=== PATIENT | female | born 1945 | race Caucasian/White ===

== ENCOUNTER 2017-06-12 08:30 | Inpatient (IN) | payer BC ==
[2017-06-11 11:47] VITALS: BMI 27.4
[2017-06-12 09:17] LABS: #Basophils 0.1 thou/uL (0.0-0.2); #Eosinphils 0.2 thou/uL (0.0-0.7); #Lymphocytes 2.4 thou/uL (1.20-3.40); #Monocytes 0.6 thou/uL (0.11-0.59); #Neutrophils 2.9 thou/uL (1.40-6.50); %Basophils 1.7 % (0.0-1.0); %Eosinophils 2.8 % (0.0-10.0); %Lymphocytes 39.4 % (21.0-51.0); %Monocytes 9.7 % (0.0-10.0); Hematocrit 39.3 % (36.0-47.0); Mean Platelet Volume 8.3 fL (7.4-10.4); Red Blood Cell (RBC) Count 4.21 mill/uL (4.20-5.40); White Blood Cell (WBC) Count 6.1 thou/uL (4.8-10.8)
[2017-06-12] MEDS ORDERED: Ketorolac Tromethamine 30 MG/ML VIAL ONE (09:18)
[2017-06-12 09:39] LABS: Anion Gap 12 mmol/L (10-20); BUN (Urea Nitrogen) 11 mg/dL (9.8-20.1); Calc. Creatinine Clearance 88 mL/min (70-130); Calcium 9.6 mg/dL (7.8-10.44); Carbon Dioxide 24 mmol/L (23-31); Chloride 104 mmol/L (98-107); Estimated GFR-MDRD 81
[2017-06-12] MEDS ORDERED: Bupivacaine HCl 0.5%/Epinephrine 1:200,000/PF 30 ml Vial ONE (10:38)
[2017-06-12] MEDS ORDERED: Fentanyl 100 MCG/2 ML VIAL ONE (10:46)
[2017-06-12] MEDS ORDERED: Midazolam HCl 2 mg/2 ml Vial ONE (10:46)
[2017-06-12] MEDS ORDERED: Promethazine HCl 25 MG/ML VIAL ONE (10:47)
[2017-06-12] MEDS ORDERED: Lidocaine 1% PF 5 ML VIAL ONE (11:02)
[2017-06-12] MEDS ORDERED: Propofol 200 MG/20 ML VIAL ONE (11:02)
[2017-06-12] MEDS ORDERED: PHENYLEPHRINE-NS 100 MCG/ML 10 ML SYRINGE ONE (11:02)
[2017-06-12] MEDS ORDERED: Labetalol HCl 100 MG/20 ML SYR ONE (11:02)
[2017-06-12] MEDS ORDERED: Ondansetron HCl/PF 4 MG/2 ML Vial ONE (11:02)
[2017-06-12] MEDS ORDERED: Glycopyrrolate 0.2 MG/ML 5 ML SYRINGE ONE (11:02)
[2017-06-12] MEDS ORDERED: Dexamethasone 20 MG/5 ML VIAL ONE (11:02)
--- NOTE | 2017-06-12 11:22 | RAD ---
CHEST 2 VIEWS: Date: 06/12/17 HISTORY: Preoperative exam. Hiatal hernia. COMPARISON: None. FINDINGS: Atherosclerosis of aorta. Normal cardiac silhouette. Pulmonary vessels and hilum are normal. Costoph renic angles are clear. No masses or consolidation. No pneumothorax. Bilateral apical pleural thicke carolin is noted. Atherosclerosis of aorta is identified. IMPRESSION: 1. No acute cardiopulmonary process. 2. Atherosclerosis. POS: [facility]
[2017-06-12] MEDS ORDERED: Promethazine HCl 25 MG/ML VIAL SLOW IVP PRN (13:20)
[2017-06-12] MEDS ORDERED: Ondansetron HCl/PF 4 MG/2 ML Vial IVP PRN ×2 (13:20→15:13)
[2017-06-12] MEDS ORDERED: Meperidine HCl/PF 25 MG/ML VIAL SLOW IVP PRN (13:20)
[2017-06-12] MEDS ORDERED: Morphine Sulfate 2 MG/ML SYRINGE SLOW IVP PRN (13:20)
[2017-06-12] MEDS ORDERED: Dextrose 5% in Water 1,000 ML IV PRN (15:13)
[2017-06-12] MEDS ORDERED: Mag-Al 1200 mg/1200 mg/30 ML UDCUP PO PRN (15:13)
[2017-06-12] MEDS ORDERED: Dextrose 50% Abboject 50 ML SYRINGE SLOW IVP PRN (15:13)
[2017-06-12] MEDS ORDERED: Calcium Carbonate 500 MG ChewTAB PO PRN (15:13)
[2017-06-12] MEDS ORDERED: Promethazine HCl 25 MG/ML VIAL IM PRN (15:13)
[2017-06-12] MEDS: D5 1/2 NS w/20 mEq KCL 1,000 ML IV SCH (15:13)
[2017-06-12] MEDS: Ketorolac Tromethamine 30 MG/ML VIAL IVP SCH (16:30)
[2017-06-12] MEDS: Famotidine/PF 20 mg/2ml Vial SLOW IVP SCH (22:35)
[2017-06-12] MEDS: Famotidine 20 MG TAB PO SCH (22:36)
[2017-06-13] MEDS: Ketorolac Tromethamine 30 MG/ML VIAL IVP SCH ×2 (02:18→07:02)
[2017-06-13] MEDS: D5 1/2 NS w/20 mEq KCL 1,000 ML IV SCH ×2 (02:20→10:50)
[2017-06-13 05:54] LABS: #Lymphocytes 1.9 thou/uL (1.20-3.40); #Neutrophils 6.7 thou/uL (1.40-6.50); %Basophils 0.4 % (0.0-1.0); %Eosinophils 0.1 % (0.0-10.0); %Lymphocytes 19.5 % (21.0-51.0); %Monocytes 10.3 % (0.0-10.0); Hematocrit 32.7 % (36.0-47.0); Mean Platelet Volume 8.8 fL (7.4-10.4); Red Blood Cell (RBC) Count 3.48 mill/uL (4.20-5.40); White Blood Cell (WBC) Count 9.7 thou/uL (4.8-10.8)
[2017-06-13 06:20] LABS: ALT (SGPT) 15 U/L (8-55); AST (SGOT) 18 U/L (5-34); Alkaline Phosphatase 62 U/L (40-150); Anion Gap 9 mmol/L (10-20); BUN (Urea Nitrogen) 10 mg/dL (9.8-20.1); Bilirubin, Total 0.6 mg/dL (0.2-1.2); Calc. Creatinine Clearance 83 mL/min (70-130); Calcium 8.7 mg/dL (7.8-10.44); Carbon Dioxide 25 mmol/L (23-31); Chloride 101 mmol/L (98-107); Estimated GFR-MDRD 75; Globulin 2.2 g/dL (2.4-3.5); Protein, Total 5.7 g/dL (6.0-8.3)
[2017-06-13 08:21] VITALS: BP 130/82; TEMP 98
[2017-06-13] MEDS: Famotidine 20 MG TAB PO SCH (08:30)
[2017-06-13] MEDS: Famotidine/PF 20 mg/2ml Vial SLOW IVP SCH (08:30)
--- NOTE | 2017-06-14 14:11 | OP ---
DATE OF PROCEDURE: 06/12/2017 PREOPERATIVE DIAGNOSIS: Hiatal hernia with gastroesophageal reflux. POSTOPERATIVE DIAGNOSIS: Hiatal hernia with gastroesophageal reflux. OPERATION PERFORMED: Laparoscopic Tammy fundoplication. SURGEON: Jonathon Gibson M.D. QUANTITATIVE CONSULTANT: KO Gil INDICATIONS: The patient is a 72-year-old white female. She presents with a large hiatal hernia vi sualized endoscopically and on upper GI. She has substantial gastroesophageal reflux disease. She is taken to the operating room at this time for a Tammy fundoplication. OPERATIVE PROCEDURE IN DETAIL: Informed consent was obtained, the patient was taken to the operatin g room where general endotracheal anesthesia was obtained with the patient in supine position. Abdo men was prepped with ChloraPrep and draped in sterile fashion. Local anesthetic was infiltrated and a 5 mm supraumbilical incision was created through which a Veress needle was passed into the perito ivanna cavity and pneumoperitoneum established using carbon dioxide up to a pressure of 15 mmHg. A 5 mm trocar port was passed through this same incision. Laparoscopic camera was passed through this p ort. Under direct vision, 4 additional ports were placed, including bilateral subcostal 5 mm ports, an 11 mm left epigastric port, and a 5 mm right epigastric port. The patient was placed into a fairly steep reverse Trendelenburg position. The triangle retractor w as passed in through the lateral right port and used to elevate the left lobe of the liver giving ex cellent visualization. It was fixed with the Hernan's arm. Initial visualization revealed a fairly large hiatal hernia with at least one-third of the stomach p resent up within the chest. Dissection was begun on the right side. The pars flaccida was incised and the lesser omentum was dissected down to the right crow. The peritoneal lining of the gastroeso phageal junction was dissected extended around the anterior aspect. Attention was then turned to th e left side. With the use stomach fully retracted out of the mediastinum, the peritoneum was incise d overlying the left crow and the hernia sac was fully dissected out of the mediastinum and reduced into the abdominal cavity. Most of the hernia sac was resected using the LigaSure device. Hemostas is was meticulously maintained. Additional dissection was then carried up into the mediastinum to a ppropriately mobilize the distal esophagus. A retroesophageal window was then dissected and Ida drain was placed around the distal esophagus. This allowed easy retraction into the abdominal cavi ty. A 50-Lao bougie was then passed into the stomach. Using this as a guide, the diaphragm was approximated posteriorly which 3 interrupted sutures of 0 Bralon using the EndoStitch device. This allowed excellent approximation with appropriate laxity around the esophagus. The greater curve of the stomach was then mobilized along the upper 1/3 using the LigaSure device. A portion of the fundus was then grasped and pulled back behind the esophagus to the patient's righ t side. A wrap was then constructed using a fundus attachment to another portion of the anterior ga stric body. The wrap was constructed and this around the distal esophagus. The wrap was cons tructed using 3 interrupted sutures of 0 Bralon, the upper and lower of which were affixed to the un derlying esophagus as well. The wrap was then fixed down into the abdomen using 2 collar sutures of 0 Bralon between the wrap and the hiatus. These were placed at the 10:30 and 1:30 radians. Finall y, a posterior gastropexy suture was placed between the wrap and the crural closure posteriorly. There were no complications during the operation. There was never any substantial bleeding nor any injury to unintended structures. At one point during the operation the bougie could not be passed t hrough the esophagus down into the abdomen after the diaphragm had been closed and I did have to re move a couple of sutures to allow the bougie to be replaced into the stomach and those sutures were then replaced uneventfully. There was no evidence of esophageal injury in doing this. There were no complications. The triangle retractor was removed. The port site at the 11 mm port w as closed with 0 Vicryl suture using a GraNee needle. All ports and instruments were removed under direct vision. Pneumoperitoneum was carefully evacuated. 0.25% Marcaine with epinephrine was infilt rated into each port site. was approximated with 4-0 Monocryl subcuticular suture and Dermabo nd . There were no complications. The patient tolerated the procedure well and was taken to re covery room in stable condition.
== END 2017-06-13 10:50 | disposition home or self-care (01) | DRG 328 ==
LOC: SURG A 08:30 → SURG B 13:52
PROVIDERS: ADMIT Specialist; ATTEND Specialist
PROC: 0DV44ZZ Restriction of Esophagogastric Junction, Percutaneous Endoscopic Approach (ICD-10-PCS; principal; 2017-06-12)
PROC: 0BQS4ZZ (ICD-10-PCS; 2017-06-12)
DX: K44.9 Diaphragmatic hernia without obstruction or gangrene (principal); I10 Essential (primary) hypertension; K21.9 Gastro-esophageal reflux disease without esophagitis; Z88.0 Allergy status to penicillin; Z90.710 Acquired absence of both cervix and uterus; G89.29 Other chronic pain; M79.606 Pain in leg, unspecified; M54.9 Dorsalgia, unspecified
CPT/HCPCS: 36415; 71020; 80048; 80053; 85025; 93005; 93010; J0131; J0360; J0670; J1100; J1170; J1885; J2001; J2250; J2270; J2405; J2550; J2704; J3010; S0028

== ENCOUNTER 2017-09-21 12:46 | Outpatient (CLI) | payer BC ==
--- NOTE | 2017-09-21 14:14 | MMO ---
TWO VIEW DIAGNOSTIC RIGHT MAMMOGRAM: CLINICAL HISTORY: Status post biopsy plus clip placement evaluation. FINDINGS: Examination performed post biopsy. There are no prior imaging comparisons. The patient is transferred from surgery clinical status post right breast biopsy. FINDINGS: There is distortion and density of the upper outer right breast with an indwelling clip. Evaluation is limited due to recent procedural state and the absence of prior comparison imaging. IMPRESSION: Clip within upper outer right breast at site of presumed postprocedural distortion. Correlation with pathology results as necessary as well as imaging followup. POS: [facility]
== END 2017-09-21 12:47 | disposition home or self-care (01) ==
LOC: MAMMO 12:46
PROVIDERS: ATTEND Specialist
DX: N63.10 Unspecified lump in the right breast, unspecified quadrant (principal)

== ENCOUNTER 2017-10-05 12:02 | Outpatient (CLI) | payer BC ==
[2017-10-05 13:26] LABS: #Basophils 0.1 thou/uL (0.0-0.2); #Eosinphils 0.2 thou/uL (0.0-0.7); #Lymphocytes 2.8 thou/uL (1.20-3.40); #Monocytes 0.7 thou/uL (0.11-0.59); #Neutrophils 3.7 thou/uL (1.40-6.50); %Basophils 1.2 % (0.0-1.0); %Eosinophils 2.3 % (0.0-10.0); %Monocytes 9.4 % (0.0-10.0); %Neutrophils 49.1 % (42.0-75.0); Hemoglobin 12.1 g/dL (12.0-16.0); Mean Corpuscular HGB CONC 32.8 g/dL (32.0-36.0); Mean Corpuscular Hemoglobin 31.2 pg (27.0-31.0); Mean Platelet Volume 8.6 fL (7.4-10.4); Platelet Count 282 thou/uL (130-400); Red Blood Cell (RBC) Count 3.88 mill/uL (4.20-5.40); White Blood Cell (WBC) Count 7.5 thou/uL (4.8-10.8)
[2017-10-05 13:54] LABS: Anion Gap 14 mmol/L (10-20); BUN (Urea Nitrogen) 13 mg/dL (9.8-20.1); Calc. Creatinine Clearance 0 mL/min (70-130); Calcium 9.8 mg/dL (7.8-10.44); Carbon Dioxide 24 mmol/L (23-31); Chloride 100 mmol/L (98-107); Estimated GFR-MDRD 76; Glucose 94 mg/dL (83-110); Potassium 4.1 mmol/L (3.5-5.1); Sodium 134 mmol/L (136-145)
--- NOTE | 2017-10-06 07:19 | EKG ---
Test Reason : Blood Pressure : / mmHG Vent. Rate : 065 BPM Atrial Rate : 065 BPM P-R Int : 140 ms QRS Dur : 078 ms QT Int : 432 ms P-R-T Axes : 043 076 057 degrees QTc Int : 449 ms Normal sinus rhythm Normal ECG When compared with ECG of 12-JUN-2017 09:34, No significant change was found Confirmed by VICKI BENITEZ, SCuca ([id number]) on 10/06/2017 7:19:09 AM Referred By: PEARL Confirmed By:DR. Taylor COHEN MD
== END 2017-10-05 12:03 | disposition home or self-care (01) ==
LOC: LABBT 12:02
PROVIDERS: ATTEND Specialist
DX: Z01.818 Encounter for other preprocedural examination (principal); C50.911 Malignant neoplasm of unspecified site of right female breast
CPT/HCPCS: 80048; 85025; 93005; 93010

== ENCOUNTER 2017-10-09 08:05 | Day surgery (SDC) | payer BC ==
[2017-10-05 12:17] VITALS: BMI 24.7
[2017-10-09] MEDS ORDERED: Ketorolac Tromethamine 30 MG/ML VIAL ONE (09:49)
[2017-10-09] MEDS ORDERED: CEFAZOLIN/Water 2 GM/20 ML SYRINGE ONE (09:50)
--- NOTE | 2017-10-09 11:11 | NM ---
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 TECHNIQUE: 0.40 mCi technetium-99m filtered sulfur colloid divided into four tuberculin syringes. Alcohol swab o f four quadrants of the right periareolar region. 30 gauge needle used to inject with the tuberculin syringe contents in each of the quadrants. FINDINGS: Immediate anterior and lateral scintigraphic images of the upper chest, head and neck demonstrate thr ee right axillary lymph nodes. One of these lymph nodes may actually be an internal mammary lymph nod e. IMPRESSION: Successful lymphoscintigraphy of the right breast, with demonstration of sentinel right axillary lymp h nodes. POS: [facility]
[2017-10-09] MEDS ORDERED: Fentanyl 100 MCG/2 ML VIAL ONE (12:18)
[2017-10-09] MEDS ORDERED: Lidocaine 2% w/Epinephrine 1:200K 20 ML VIAL ONE (12:24)
[2017-10-09] MEDS ORDERED: Bupivacaine 0.25% HCL 30 ML VIAL ONE (12:24)
[2017-10-09] MEDS ORDERED: Isosulfan Blue 50 MG/5 ML VIAL ONE (12:24)
[2017-10-09] MEDS ORDERED: Lidocaine 1% PF 5 ML VIAL ONE (12:30)
[2017-10-09] MEDS ORDERED: diphenhydrAMINE 50 MG/ML VIAL ONE (12:30)
[2017-10-09] MEDS ORDERED: ePHEDrine/0.9% NaCl/PF SYRINGE 50 mg/10 ml ONE (12:30)
[2017-10-09] MEDS ORDERED: Propofol 200 MG/20 ML VIAL ONE (12:30)
[2017-10-09] MEDS ORDERED: Metoclopramide HCl 10 MG/2 ML VIAL ONE (12:30)
[2017-10-09] MEDS ORDERED: Dexamethasone 20 MG/5 ML VIAL ONE (12:30)
[2017-10-09] MEDS ORDERED: Ondansetron HCl/PF 4 MG/2 ML Vial ONE (12:30)
[2017-10-09] MEDS ORDERED: Levofloxacin 500 mg/D5W 100 ml Premix Bag ONE (12:51)
--- NOTE | 2017-10-09 14:33 | MMO ---
RADIOGRAPH SURGICAL SPECIMEN: Date: 10/09/17 HISTORY: Status post sonographically guided needle localization by surgeon, and excisional breast biopsy by wilian stewart, of 72-year-old female with malignant neoplasm of upper outer quadrant of right breast. FINDINGS: The surgical specimen contains the localization wire, a mass-like soft tissue density, and a surgical clip at the periphery of this mass-like density. IMPRESSION: Successful surgical excisional biopsy of right upper outer quadrant breast cancer. POS: [facility]
--- NOTE | 2017-10-10 15:30 | OP ---
DATE OF PROCEDURE: 10/09/2017 PREOPERATIVE DIAGNOSIS: Right breast cancer. POSTOPERATIVE DIAGNOSIS: Right breast cancer. OPERATIONS PERFORMED: Ultrasound-guided needle localization of right breast cancer, needle localized right breast lumpectomy and right axillary sentinel lymph node biopsy. SURGEON: Jonathon Gibson M.D. ANESTHESIA: General endotracheal. INDICATIONS: The patient is a 72-year-old white female. She had presented with a right breast mass that was biopsied and found to be an area of invasive ductal carcinoma. This was less than 2 cm in s ize. It is a hormone receptor positive and HER-2 negative. I discussed all possible options with he r and she has elected to proceed with breast conserving surgery, with which I agreed. DESCRIPTION OF OPERATION: Informed consent was obtained. The patient was taken to the operating russ m where general endotracheal anesthesia was obtained with the patient in the supine position. Prior to being taken to the operating room, lymphoscintigraphy was performed revealing at least 2 obvious s entinel lymph nodes within the right axilla. A 2.5 mL of Lymphazurin was infiltrated into the subder mal tissue around the right areolar edge and the area was massaged for 5 minutes. Attention was turned to the axilla. Local anesthetic was infiltrated using 0.25% Marcaine with epine phrine and a transverse incision was created in the inferior axilla. Dissection was carried through skin and subcutaneous tissue as well as the superficial axillary fascia. Neoprobe was utilized to id entify areas of maximum radio intensity. I was able to dissect 3 separate lymph nodes, each of which had substantial radioactivity and 2 of which had blue dye within them as well. Each lymph node was dissected circumferentially and all investing tissue was divided between clamps and 3-0 silk ties. A t the completion of removal of these 3 sites, there was no substantial residual radioactivity. Metic ulous hemostasis was obtained and the wound was closed in layers with 3-0 and 4-0 Monocryl. Addition al local anesthetic was infiltrated during closure. Attention was turned to the breast. Ultrasound was utilized to identify the area of the malignancy w ithin the upper outer right breast. This was unfortunately challenging as there was substantial makayla tennille and reaction around the prior biopsy site. I was, however, able to identify this and marked the area of the malignancy on the overlying skin. I then utilized the ultrasound to pass a localizing w marques down through the skin and the malignancy. The wire was placed in a medial to lateral fashion. Additional local anesthetic was infiltrated. Transverse incision was created directly over the right breast cancer. Dissection was carried through skin and subcutaneous tissue. Flaps were raised in a ll directions and the tissue into which the wire entered was grasped with 2 Allis clamps. I dissecte d a wide lump of tissue around the investing needle. The specimen was removed intact and tagged for orientation with multiple sutures. The specimen was passed off to Radiology who confirmed that the p rior biopsy clip was within the specimen and there appeared to be a density consistent with a cancer within the specimen as well as it appeared that the margins were adequate based on this. Examination within the wound was carried out. There was no further visible or palpable evidence of disease. Me ticulous hemostasis was obtained with electrocautery. The wound was closed in layers with 3-0 and 4- 0 Monocryl and additional local anesthetic was infiltrated during closure. Dermabond was placed exte rnally over both incisions. There were no complications. The patient tolerated the procedure well a nd was taken to recovery room in stable condition.
== END 2017-10-09 16:35 | disposition home or self-care (01) ==
LOC: SDC 08:05
PROVIDERS: ATTEND Specialist
PROC: 07B50ZX Excision of Right Axillary Lymphatic, Open Approach, Diagnostic (ICD-10-PCS; principal; 2017-10-09)
PROC: 0HBT0ZZ Excision of Right Breast, Open Approach (ICD-10-PCS; principal; 2017-10-09)
DX: C50.411 Malignant neoplasm of upper-outer quadrant of right female breast (principal); M54.9 Dorsalgia, unspecified; M79.606 Pain in leg, unspecified; G89.29 Other chronic pain; I42.9 Cardiomyopathy, unspecified; I10 Essential (primary) hypertension; Z17.0 Estrogen receptor positive status [ER+]; Z79.82 Long term (current) use of aspirin; Z79.899 Other long term (current) drug therapy; Z88.0 Allergy status to penicillin; Z96.1 Presence of intraocular lens; Z98.41 Cataract extraction status, right eye; Z98.42 Cataract extraction status, left eye; Z90.710 Acquired absence of both cervix and uterus; Z98.890 Other specified postprocedural states; Z86.73 Personal history of transient ischemic attack (TIA), and cerebral infarction without residual deficits
CPT/HCPCS: 76098; 78195; 88307; 88333; 88334; 88342; A9541; J0131; J1100; J1200; J1885; J1956; J2001; J2405; J2704; J2765; J3010; Q9968; S0020

== ENCOUNTER 2018-10-02 08:16 | Outpatient (CLI) | payer BC | END 2018-10-02 08:17 | disposition home or self-care (01) | LOC: BICMAMMO 08:16 | PROVIDERS: ATTEND Specialist | DX: C50.911 Malignant neoplasm of unspecified site of right female breast (principal); Z85.3 Personal history of malignant neoplasm of breast | CPT/HCPCS: 77066; G0279 ==

== ENCOUNTER 2018-11-05 09:07 | Outpatient (CLI) | payer BC ==
--- NOTE | 2018-11-05 10:39 | BD ---
DEXA BONE DENSITY EXAM: HISTORY: A 73-year-old postmenopausal female for screening. FINDINGS: LUMBAR SPINE BMD (g/cm2) T-SCORE L1 0.871 -1.1 L2 0.943 -0.8 L3 1.034 -0.5 L4 1.100 0.5 TOTAL L1-L4 0.993 -0.5 LEFT FEMORAL NECK 0.896 0.4 TOTAL PROXIMAL LEFT FEMUR 1.032 0.7 IMPRESSION: Normal bone mineral density. POS: [facility]
== END 2018-11-05 09:08 | disposition home or self-care (01) ==
LOC: BICMAMMO 09:07
PROVIDERS: ATTEND Internal Medicine Hematology & Oncology
DX: Z78.0 Asymptomatic menopausal state (principal); C50.411 Malignant neoplasm of upper-outer quadrant of right female breast; M85.88 Other specified disorders of bone density and structure, other site
CPT/HCPCS: 77080

== ENCOUNTER 2019-10-09 09:07 | Outpatient (CLI) | payer BC ==
--- NOTE | 2019-10-09 10:03 | MMO ---
Bilateral MAMMO Bilat Diag DDI+OSCAR. CLINICAL HISTORY: Patient is 74 years old and is seen for diagnostic exam. The patient has no family history of breast cancer. The patient has a history of malignant (generic) in the right breast at age 72. The patient has a history of right Lumpectomy in September, - malignant. VIEWS: The views performed were: bilateral craniocaudal with tomosynthesis; bilateral mediolateral oblique with tomosynthesis; and bilateral mediolateral with tomosynthesis. FILMS COMPARED: The present examination has been compared to prior imaging studies performed at [facility] on 09/12/2017, at [facility] on 10/02/2018, and at [facility] on 09/21/2017 and 10/09/2017. This study has been interpreted with the assistance of computer-aided detection. MAMMOGRAM FINDINGS: The breasts are heterogeneously dense, which could obscure a lesion on mammography. Finding 1: There are stable benign appearing calcifications seen in both breasts. Finding 2: There is a stable post-surgical scar seen in the upper-outer region of the right breast. There are no suspicious masses, suspicious calcifications, or new areas of architectural distortion. IMPRESSION: THERE IS NO MAMMOGRAPHIC EVIDENCE OF MALIGNANCY. A ROUTINE FOLLOW-UP MAMMOGRAM IN 1 YEAR IS RECOMMENDED. THE RESULTS OF THIS EXAM WERE SENT TO THE PATIENT. ACR BI-RADS Category 2 - Benign finding MAMMOGRAPHY NOTE: 1. A negative mammogram report should not delay a biopsy if a dominant of clinically suspicious mass is present. 2. Approximately 10% to 15% of breast cancers are not detected by mammography. 3. Adenosis and dense breasts may obscure an underlying neoplasm. Reported by: KELSY THOMPSON MD Electonically Signed: [id number]
== END 2019-10-09 09:08 | disposition home or self-care (01) ==
LOC: BICMAMMO 09:07
PROVIDERS: ATTEND Specialist
DX: Z08 Encounter for follow-up examination after completed treatment for malignant neoplasm (principal); Z85.3 Personal history of malignant neoplasm of breast
CPT/HCPCS: 77066; G0279

== ENCOUNTER 2020-02-10 11:02 | Outpatient (CLI) | payer BC ==
--- NOTE | 2020-02-10 13:51 | BD ---
Exam: DEXA Bone Density 02/10/20 HISTORY: Osteoporosis screening. COMPARISON: DEXA exam from 2019. FINDINGS: Lumbar Spine: BMD (g/cm2) T-SCORE Z-SCORE L1 0.888 -0.9 1.2 L2 0.904 -1.1 1.2 L3 1.095 0.1 2.5 L4 1.081 0.2 2.7 L1-L4 0.996 -0.5 1.9 The change from the comparison examination is +0.3%, not statistically significant. Left Femoral Neck: 0.842 -0.1 2.0 Total Femur: 1.091 1.2 2.9 The change from the comparison examination is +5.7%, statistically significant. WHO classification: Normal. Impression: Normal bone mineral density with statistically significant increased bone mineral density at the left femoral neck from comparison exam. POS: [facility]
== END 2020-02-10 11:03 | disposition home or self-care (01) ==
LOC: BICMAMMO 11:02
PROVIDERS: ATTEND Internal Medicine Hematology & Oncology
DX: Z13.820 Encounter for screening for osteoporosis (principal); C50.411 Malignant neoplasm of upper-outer quadrant of right female breast; T38.6X5A Adverse effect of antigonadotrophins, antiestrogens, antiandrogens, not elsewhere classified, initial encounter; Z78.0 Asymptomatic menopausal state
CPT/HCPCS: 77080

== ENCOUNTER 2020-12-29 09:01 | Outpatient (CLI) | payer MEDICARE, OTHER | END 2020-12-29 09:02 | disposition home or self-care (01) | LOC: BICMAMMO 09:01 | PROVIDERS: ATTEND Specialist | DX: Z08 Encounter for follow-up examination after completed treatment for malignant neoplasm (principal); Z85.3 Personal history of malignant neoplasm of breast | CPT/HCPCS: 77066; G0279 ==

== ENCOUNTER 2021-01-11 14:07 | Outpatient (CLI) | payer MEDICARE, OTHER ==
[2021-01-11 15:49] LABS: Bilirubin Neg (Negative); Blood, Urine Negative (Negative); Clarity Clear (Clear); Glucose, Urine (Dipstick) Normal (Negative); Ketone, Urine Negative (Negative); Leukocyte 100 (Negative); Nitrite Negative (Negative); Protein, Urine (Dipstick) Negative (Neg-Trace); Urobilinogen Normal mg/dL (Less than 2)
[2021-01-11 16:01] LABS: Bacteria/HPF Rare-Few HPF (None Seen); RBC/HPF 0-3 HPF (0-3); Squamous Epithelial 0-3 HPF (0-3)
[2021-01-11 16:03] LABS: Anion Gap 15 mmol/L (10-20); BUN (Urea Nitrogen) 18 mg/dL (9.8-20.1); Calc. Creatinine Clearance 0 mL/min (70-130); Carbon Dioxide 24 mmol/L (23-31); Chloride 99 mmol/L (98-107); Glucose 101 mg/dL (83-110); Potassium 4.3 mmol/L (3.5-5.1); Sodium 134 mmol/L (136-145)
[2021-01-11 16:05] LABS: #Basophils 0.1 10x3/uL (0.0-0.2); #Eosinphils 0.3 10x3/uL (0.0-0.5); #Monocytes 0.7 10x3/uL (0.0-1.1); #Neutrophils 3.7 10x3/uL (1.5-8.4); %Basophils 0.9 % (0.0-2.0); %Eosinophils 4.9 % (0.0-6.0); %Lymphocytes 29.6 % (18.0-47.0); %Monocytes 9.8 % (0.0-10.0); %Neutrophils 54.7 % (40.0-75.0); Hemoglobin 11.7 g/dL (12.0-15.5); Mean Corpuscular Hemoglobin 30.9 pg (27.0-33.0); Mean Corpuscular Volume 93.7 fl (81.6-98.3); Mean Platelet Volume 12.5 fl (7.4-10.4); Platelet Count 258 10x3/uL (150-450); RBC Distribution Width 13.5 % (11.5-14.5); Red Blood Cell (RBC) Count 3.79 10x6/uL (3.90-5.03); White Blood Cell (WBC) Count 6.7 10x3/uL (3.5-10.5)
[2021-01-12 04:50] LABS: SARS-CoV-2 PCR by NAA Not Detected (NotDetected)
== END 2021-01-11 14:08 | disposition home or self-care (01) ==
LOC: LABBT 14:07
PROVIDERS: ATTEND Orthopaedic Surgery Hand Surgery
DX: Z01.818 Encounter for other preprocedural examination (principal); M19.042 Primary osteoarthritis, left hand; Z20.822 Contact with and (suspected) exposure to COVID-19
CPT/HCPCS: 80048; 81001; 85025; 93005; U0003; U0005; 87635; 93010

== ENCOUNTER 2021-01-14 08:02 | Day surgery (SDC) | payer MEDICARE, OTHER ==
[2021-01-13 11:36] VITALS: BMI 26.9
[2021-01-14] MEDS ORDERED: Midazolam HCl 2 mg/2 ml Vial ONE (09:50)
[2021-01-14] MEDS ORDERED: Fentanyl 100 MCG/2 ML VIAL ONE ×2 (09:50→11:12)
[2021-01-14] MEDS ORDERED: Bupivacaine PF 0.5% 30 ML VIAL ONE (10:54)
[2021-01-14] MEDS ORDERED: Bacitracin Zinc Ointment 30 gm TUBE ONE (10:54)
[2021-01-14] MEDS ORDERED: Betamet Acet/Betamet Na Ph 30 MG/5 ML VIAL ONE (10:54)
[2021-01-14] MEDS ORDERED: Clindamycin/D5W 600 mg/50 ml Premix Bag ONE (10:57)
[2021-01-14] MEDS ORDERED: Lidocaine 1% PF 5 ML VIAL ONE (11:16)
[2021-01-14] MEDS ORDERED: PHENYLEPHRINE-NS 100 MCG/ML 10 ML SYRINGE ONE (11:16)
[2021-01-14] MEDS ORDERED: Ondansetron PF 4 MG/2 ML Vial ONE (11:16)
[2021-01-14] MEDS ORDERED: ePHEDrine Sulfate 50 MG/10 ML VIAL ONE (11:16)
[2021-01-14] MEDS ORDERED: PROPOFOL 200 MG/20 ML VIAL ONE (11:16)
[2021-01-14] MEDS ORDERED: Rocuronium Bromide 10 MG/ML (10ML VIAL) ONE (11:16)
[2021-01-14] MEDS ORDERED: Glycopyrrolate 0.2 MG/ML 5 ML SYRINGE ONE (11:16)
[2021-01-14] MEDS ORDERED: Ketorolac Tromethamine 30 MG/ML VIAL ONE (13:54)
== END 2021-01-14 14:56 | disposition home or self-care (01) ==
LOC: SDC 08:02
PROVIDERS: ATTEND Orthopaedic Surgery Hand Surgery
PROC: 0RRX0JZ Replacement of Left Finger Phalangeal Joint with Synthetic Substitute, Open Approach (ICD-10-PCS; principal; 2021-01-14)
DX: M19.042 Primary osteoarthritis, left hand (principal); I10 Essential (primary) hypertension; G89.29 Other chronic pain; M54.9 Dorsalgia, unspecified; M79.606 Pain in leg, unspecified; I42.9 Cardiomyopathy, unspecified; E78.5 Hyperlipidemia, unspecified; I25.2 Old myocardial infarction; Z85.3 Personal history of malignant neoplasm of breast; Z86.73 Personal history of transient ischemic attack (TIA), and cerebral infarction without residual deficits; Z79.811 Long term (current) use of aromatase inhibitors; Z79.899 Other long term (current) drug therapy; Z88.0 Allergy status to penicillin
CPT/HCPCS: 76000; C1776; J0702; J1885; J2250; J2405; J2704; J3010; J3490; S0020

== ENCOUNTER 2021-02-10 08:37 | Outpatient (CLI) | payer MEDICARE, OTHER | END 2021-02-10 08:38 | disposition home or self-care (01) | LOC: BICMAMMO 08:37 | PROVIDERS: ATTEND Internal Medicine Hematology & Oncology | DX: Z13.820 Encounter for screening for osteoporosis (principal); Z78.0 Asymptomatic menopausal state | CPT/HCPCS: 77080 ==

== ENCOUNTER 2022-01-09 09:31 | Outpatient (CLI) | payer MEDICARE, OTHER | END 2022-01-09 09:32 | disposition home or self-care (01) | LOC: BICMAMMO 09:31 | PROVIDERS: ATTEND Specialist | DX: Z12.31 Encounter for screening mammogram for malignant neoplasm of breast (principal); Z98.890 Other specified postprocedural states; Z85.3 Personal history of malignant neoplasm of breast | CPT/HCPCS: 77063; 77067 ==

== ENCOUNTER 2022-02-01 08:01 | Outpatient (CLI) | payer MEDICARE, OTHER | END 2022-02-01 08:02 | disposition home or self-care (01) | LOC: BICCT 08:01 | PROVIDERS: ATTEND Family Medicine | DX: R06.02 Shortness of breath (principal) | CPT/HCPCS: 71260; 82565 ==

== ENCOUNTER 2023-08-21 09:06 | Outpatient (CLI) | payer MEDICARE | END 2023-08-21 09:07 | disposition home or self-care (01) | LOC: BICMAMMO 09:06 | PROVIDERS: ATTEND Specialist | DX: N63.10 Unspecified lump in the right breast, unspecified quadrant (principal); N64.89 Other specified disorders of breast; Z85.3 Personal history of malignant neoplasm of breast | CPT/HCPCS: 77065; G0279 ==

== ENCOUNTER 2024-01-22 07:33 | Outpatient (CLI) | payer MEDICARE, OTHER | END 2024-01-22 07:34 | disposition home or self-care (01) | LOC: BICCT 07:33 | PROVIDERS: ATTEND Internal Medicine | DX: J45.20 Mild intermittent asthma, uncomplicated (principal); R91.8 Other nonspecific abnormal finding of lung field; K44.9 Diaphragmatic hernia without obstruction or gangrene; M85.9 Disorder of bone density and structure, unspecified; Z98.890 Other specified postprocedural states | CPT/HCPCS: 71250 ==

== ENCOUNTER 2024-02-21 09:36 | Outpatient (CLI) | payer MEDICARE, OTHER | END 2024-02-21 09:37 | disposition home or self-care (01) | LOC: BICMAMMO 09:36 | PROVIDERS: ATTEND Specialist | DX: N64.89 Other specified disorders of breast (principal); Z85.3 Personal history of malignant neoplasm of breast | CPT/HCPCS: 77066; G0279 ==

== ENCOUNTER 2024-09-04 07:02 | Outpatient (CLI) | payer MEDICARE, OTHER ==
[2024-09-04] MEDS ORDERED: Barium Sulfate 96% 176 GM BOT (xray ONLY) ONE (07:24)
[2024-09-04] MEDS ORDERED: E-Z-HD 98% W/W 340GM BOT (x-ray ONLY) ONE (07:24)
== END 2024-09-04 07:03 | disposition home or self-care (01) ==
LOC: RAD 07:02
PROVIDERS: ATTEND Surgery
DX: K44.9 Diaphragmatic hernia without obstruction or gangrene (principal); K21.9 Gastro-esophageal reflux disease without esophagitis
CPT/HCPCS: 74220

== ENCOUNTER 2024-09-23 08:33 | Outpatient (CLI) | payer MEDICARE, OTHER ==
[2024-09-23 10:21] LABS: #Basophils 0.08 10x3/uL (0.0-0.2); %Basophils 0.9 % (0.0-1.0); %Eosinophils 3.1 % (0.0-10.0); %Lymphocytes 22.5 % (21.0-51.0); %Monocytes 9.9 % (0.0-10.0); %Neutrophils 63.1 % (42.0-75.0); Hematocrit 35.3 % (36.0-47.0); Hemoglobin 11.9 g/dL (12.0-16.0); Mean Corpuscular HGB CONC 33.7 g/dL (32.0-36.0); Mean Corpuscular Hemoglobin 31.7 pg (27.0-31.0); Mean Corpuscular Volume 94.1 fL (78.0-98.0); Mean Platelet Volume 11.6 fL (7.4-10.4); Platelet Count 278 10x3/uL (130-400); RBC Distribution Width 13.4 % (11.5-14.5); Red Blood Cell (RBC) Count 3.75 mill/uL (4.20-5.40)
[2024-09-23 11:33] LABS: ALT (SGPT) 22 U/L (8-55); AST (SGOT) 20 U/L (5-34); Albumin 4.2 g/dL (3.4-4.8); Alkaline Phosphatase 86 U/L (40-110); Anion Gap 13 mmol/L (10-20); BUN (Urea Nitrogen) 11 mg/dL (9.8-20.1); Bilirubin, Direct 0.3 mg/dL (0.1-0.3); Bilirubin, Total 0.7 mg/dL (0.2-1.2); Calc. Creatinine Clearance 0 mL/min (70-130); Calcium 10.1 mg/dL (7.8-10.44); Carbon Dioxide 23 mmol/L (23-31); Chloride 101 mmol/L (98-107); Estimated GFR 89; Glucose 106 mg/dL (83-110); Potassium 3.9 mmol/L (3.5-5.1); Sodium 133 mmol/L (136-145)
== END 2024-09-23 08:34 | disposition home or self-care (01) ==
LOC: LABBT 08:33
PROVIDERS: ATTEND Surgery
DX: Z01.818 Encounter for other preprocedural examination (principal); K44.9 Diaphragmatic hernia without obstruction or gangrene
CPT/HCPCS: 80048; 80076; 85025; 93005; 93010

== ENCOUNTER 2024-09-30 05:42 | Observation (INO) | payer MEDICARE, OTHER ==
[2024-09-23 08:54] VITALS: BMI 26.6
[2024-09-30] MEDS ORDERED: CEFAZOLIN 2 GM in Sodium Chloride 0.9% 100 ML IVPB SCH (06:00)
[2024-09-30] MEDS ORDERED: LevoFLOXacin D5W 500 mg (100 mL) BAG ONE (06:21)
[2024-09-30] MEDS ORDERED: Indocyanine Green 25 MG/10 ML VIAL ONE (06:23)
[2024-09-30] MEDS ORDERED: LevoFLOXacin 500 mg/D5W 500 MG in Premix 1 BAG IVPB SCH (06:30)
[2024-09-30] MEDS ORDERED: EPINEPHrine 1 MG/ML VIAL ONE (06:38)
[2024-09-30] MEDS ORDERED: Bupivacaine 0.25% HCL 30 ML VIAL ONE (06:38)
[2024-09-30] MEDS ORDERED: fentaNYL PF 100 MCG/2 ML SYRINGE ONE ×2 (07:16→10:04)
[2024-09-30] MEDS ORDERED: Rocuronium Bromide 10 MG/ML (10ML VIAL) ONE (07:16)
[2024-09-30] MEDS ORDERED: PROPOFOL 20 ML ONE (07:16)
[2024-09-30] MEDS ORDERED: Lidocaine 1% PF 5 ML VIAL ONE (07:16)
[2024-09-30] MEDS ORDERED: PHENYLEPHRINE-NS 100 MCG/ML 10 ML SYRINGE ONE (08:44)
[2024-09-30] MEDS ORDERED: SUGAMMADEX SODIUM 200 MG/2 ML VIAL ONE (10:08)
[2024-09-30] MEDS ORDERED: Dexamethasone 20 MG/5 ML VIAL ONE (10:08)
[2024-09-30] MEDS ORDERED: Ondansetron PF 4 MG/2 ML Vial ONE (10:08)
[2024-09-30] MEDS ORDERED: FLUTICASONE PROPION IH PRN (10:10)
[2024-09-30] MEDS ORDERED: Promethazine HCl 25 MG/ML VIAL IM PRN ×2 (10:10→10:30)
[2024-09-30] MEDS ORDERED: SALMETEROL IH PRN (10:10)
[2024-09-30] MEDS ORDERED: Naloxone HCl 0.4 mg/ml Vial IVP PRN (10:10)
[2024-09-30] MEDS ORDERED: hydrALAZINE 20 MG/ML VIAL SLOW IVP PRN (10:10)
[2024-09-30] MEDS ORDERED: Ipratropium/Albuterol 3 ML NEB NEB PRN (10:10)
[2024-09-30] MEDS ORDERED: Dextrose 50% Abboject 50 ML SYRINGE SLOW IVP PRN (10:10)
[2024-09-30] MEDS ORDERED: [UNRECOGNIZED DRUG - OTHER] IH PRN (10:10)
[2024-09-30] MEDS ORDERED: Morphine 4 MG/ML VIAL SLOW IVP PRN (10:10)
[2024-09-30] MEDS ORDERED: Dextrose 5% in Water 1,000 ML IV PRN (10:10)
[2024-09-30] MEDS ORDERED: Glucagon 1 MG/ML KIT IM PRN (10:10)
[2024-09-30] MEDS ORDERED: Non-Formulary Medication 1 EACH PO PRN (10:26)
[2024-09-30] MEDS ORDERED: Meperidine HCl/PF 25 MG/ML VIAL SLOW IVP PRN (10:30)
[2024-09-30] MEDS ORDERED: HYDROmorphone 2 MG/ML VIAL SLOW IVP PRN (10:30)
[2024-09-30] MEDS ORDERED: Ondansetron HCl/PF 4 MG/2 ML Vial IVP PRN (10:30)
[2024-09-30] MEDS ORDERED: fentaNYL 50 mcg/mL 1 mL Vial ONE (10:31)
[2024-09-30] MEDS: Ondansetron PF 4 MG/2 ML Vial IVP PRN (12:37)
[2024-09-30] MEDS: Acetaminophen 325 MG TAB PO SCH (14:42)
[2024-09-30] MEDS: D5 1/2 NS w/20 mEq KCL 1,000 ML IV SCH (14:45)
[2024-09-30] MEDS: traMADol HCl 50 MG TAB PO PRN (18:05)
[2024-09-30] MEDS: Mometasone 200 MCG/Formoterol 5 MCG 120 PUFF INHALER INH SCH (18:37)
[2024-09-30] MEDS ORDERED: Non-Formulary Item 1 EACH (Carvedilol [Carvedilol] 12.5 MG Tablet) PO SCH (21:00)
[2024-09-30] MEDS: Carvedilol 6.25 MG TAB PO SCH (21:55)
[2024-09-30] MEDS: Lisinopril 20 MG TAB PO SCH (21:55)
[2024-10-01 07:56] VITALS: BP 144/84; TEMP 98
[2024-10-01] MEDS ORDERED: Non-Formulary Item 1 EACH (Lisinopril/Hydrochlorothiazide [Lisinopril-Hctz 20-12.5 Mg Tab PO SCH (09:00)
[2024-10-01] MEDS: Hydrochlorothiazide 25 MG TAB PO SCH (09:44)
[2024-10-01] MEDS: Pantoprazole 40 MG VIAL IVP SCH (09:45)
[2024-10-01] MEDS: Enoxaparin 40 MG (0.4 mL) SYRINGE SC SCH (09:46)
== END 2024-10-01 11:37 | disposition home or self-care (01) ==
LOC: SDC 05:42 → SURG A 10:07 → SDC 10:10 → SURG A 10:10
PROVIDERS: ADMIT Surgery; ATTEND Surgery
PROC: 0BUT4JZ Supplement Diaphragm with Synthetic Substitute, Percutaneous Endoscopic Approach (ICD-10-PCS; principal; 2024-09-30)
DX: K44.9 Diaphragmatic hernia without obstruction or gangrene (principal); I10 Essential (primary) hypertension; I42.9 Cardiomyopathy, unspecified; J45.909 Unspecified asthma, uncomplicated; E78.5 Hyperlipidemia, unspecified; Z79.899 Other long term (current) drug therapy; Z98.890 Other specified postprocedural states; Z88.0 Allergy status to penicillin; Z98.49 Cataract extraction status, unspecified eye; Z86.73 Personal history of transient ischemic attack (TIA), and cerebral infarction without residual deficits; Z85.3 Personal history of malignant neoplasm of breast; Z90.710 Acquired absence of both cervix and uterus
CPT/HCPCS: 43282; 94640 ×2; C1781; J0171; J0665; J1100; J1650; J1956; J2405; J2470; J2704; J3010; J3480; S2900

== ENCOUNTER 2025-06-19 08:10 | Outpatient (CLI) | payer MEDICARE, OTHER ==
[2025-06-19] MEDS ORDERED: Iopamidol 370 76% 100 ML VIAL ONE (13:42)
== END 2025-06-19 08:11 | disposition home or self-care (01) ==
LOC: CT 08:10
PROVIDERS: ATTEND Physician Assistant Medical
DX: K52.9 Noninfective gastroenteritis and colitis, unspecified (principal); R11.0 Nausea; R63.0 Anorexia; R13.10 Dysphagia, unspecified; D64.9 Anemia, unspecified; R63.4 Abnormal weight loss
CPT/HCPCS: 74177; Q9967